=== PATIENT | male | born 1990 | race Caucasian/White ===

== ENCOUNTER 2016-07-26 18:12 | Emergency (ER) | payer SELFPAY ==
[2016-07-26] MEDS ORDERED: Oxymetazoline HCl 0.05% ( 15 ML ) ONE (19:00)
== END 2016-07-26 19:08 | disposition home or self-care (01) ==
LOC: MADERS 18:12
DX: J30.2 Other seasonal allergic rhinitis (principal); K21.9 Gastro-esophageal reflux disease without esophagitis; G56.00 Carpal tunnel syndrome, unspecified upper limb; F90.9 Attention-deficit hyperactivity disorder, unspecified type
CPT/HCPCS: 99283

== ENCOUNTER 2017-08-09 00:27 | Emergency (ER) | payer OTHER, SELFPAY ==
[2017-08-09] MEDS ORDERED: Ibuprofen 800 MG TAB ONE (00:49)
[2017-08-09] MEDS ORDERED: Fluconazole 100 MG TAB ONE (00:49)
[2017-08-09] MEDS ORDERED: predniSONE 20 MG TAB ONE (00:49)
== END 2017-08-09 00:52 | disposition home or self-care (01) ==
LOC: MADERS 00:27
DX: S93.501A Unspecified sprain of right great toe, initial encounter (principal); K21.9 Gastro-esophageal reflux disease without esophagitis; F90.9 Attention-deficit hyperactivity disorder, unspecified type; F17.210 Nicotine dependence, cigarettes, uncomplicated; X58.XXXA Exposure to other specified factors, initial encounter
CPT/HCPCS: 99283; J7506

== ENCOUNTER 2022-11-16 16:32 | Emergency (ER) | payer OTHER, SELFPAY ==
[2022-11-16] MEDS ORDERED: Ketorolac Tromethamine 30 MG/ML VIAL ONE (17:35)
== END 2022-11-16 18:06 | disposition home or self-care (01) ==
LOC: MADERS 16:32
DX: S33.5XXA Sprain of ligaments of lumbar spine, initial encounter (principal); K21.9 Gastro-esophageal reflux disease without esophagitis; F17.290 Nicotine dependence, other tobacco product, uncomplicated; X50.0XXA Overexertion from strenuous movement or load, initial encounter
CPT/HCPCS: 96372; 99283; J1885

== ENCOUNTER 2022-12-27 17:03 | Emergency (ER) | payer OTHER | END 2022-12-27 19:44 | disposition left against medical advice (07) | LOC: MADERS 17:03 | DX: Z53.21 Procedure and treatment not carried out due to patient leaving prior to being seen by health care provider (principal) ==

== ENCOUNTER 2024-03-12 11:09 | Emergency (ER) | payer SELFPAY ==
[2024-03-12] MEDS ORDERED: Ketorolac Tromethamine 10 MG TAB ONE (11:30)
[2024-03-12] MEDS ORDERED: Cyclobenzaprine 10 MG TAB ONE (11:30)
== END 2024-03-12 11:46 | disposition home or self-care (01) ==
LOC: MADERS 11:09
DX: M54.50 Low back pain, unspecified (principal); F17.290 Nicotine dependence, other tobacco product, uncomplicated
CPT/HCPCS: 99283

== ENCOUNTER 2024-05-26 21:48 | Emergency (ER) | payer OTHER, SELFPAY ==
[2024-05-26] MEDS ORDERED: Milk Of Magnesia 30 ML UDCUP ONE (21:54)
[2024-05-26] MEDS ORDERED: Lidocaine Viscous Sol 2% 15 ml UD Cup ONE (21:54)
[2024-05-26] MEDS ORDERED: Aspirin Chewable 81 MG TAB ONE (22:01)
[2024-05-26] MEDS ORDERED: Nitroglycerin 0.4 MG TAB 1 EACH ONE (22:01)
[2024-05-26 22:26] LABS: Hemoglobin 14.6 g/dL (14.0-18.0); Mean Corpuscular Hemoglobin 29.9 pg (27.0-31.0); Mean Platelet Volume 6.9 fL (7.4-10.4); Platelet Count 320 10x3/uL (130-400); RBC Distribution Width 10.8 % (11.5-14.5); Red Blood Cell (RBC) Count 4.89 mill/uL (4.70-6.10)
[2024-05-26 22:27] LABS: #Basophils 0.1 thou/uL (0.0-0.2); #Eosinophils 0.4 thou/uL (0.0-0.7); #Monocytes 0.9 thou/uL (0.11-0.59); #Neutrophils 8.1 thou/uL (1.40-6.50); %Basophils 0.8 % (0.0-1.0); %Eosinophils 3.3 % (0.0-10.0); %Monocytes 7.4 % (0.0-10.0); %Neutrophils 64.5 % (42.0-75.0)
[2024-05-26 22:44] LABS: ALT (SGPT) 25 U/L (Less than 45); AST (SGOT) 26 U/L (11-34); Albumin 4.1 g/dL (3.1-4.5); Alkaline Phosphatase 61 U/L (40-110); Anion Gap 14 mmol/L (10-20); BUN (Urea Nitrogen) 9 mg/dL (8.9-20.6); Bilirubin, Total 0.3 mg/dL (0.3-1.2); Calc. Creatinine Clearance 0 mL/min (70-130); Calcium 9.1 mg/dL (7.8-10.44); Carbon Dioxide 24 mmol/L (22-29); Chloride 106 mmol/L (98-107); Estimated GFR 118; Globulin 2.7 g/dL (2.4-3.5); Glucose 78 mg/dL (70-105); Lipase 17 U/L (8-78); Protein, Total 6.8 g/dL (6.0-8.3); Sodium 140 mmol/L (136-145); Troponin I Less than 0.010 ng/mL (< 0.028)
[2024-05-26] MEDS ORDERED: Famotidine 20 MG TAB ONE (22:56)
[2024-05-26] MEDS ORDERED: Sucralfate 1 GM TAB ONE (22:56)
== END 2024-05-26 23:05 | disposition home or self-care (01) ==
LOC: MADERS 21:48
DX: R07.2 Precordial pain (principal); F17.290 Nicotine dependence, other tobacco product, uncomplicated
CPT/HCPCS: 36415; 71046; 80053; 83690; 84484; 85025; 93005; 94760

== ENCOUNTER 2024-10-23 21:57 | Emergency (ER) | payer OTHER ==
[2024-10-23 22:23] LABS: Bacteria/HPF Rare-Few HPF (None Seen); CAUTI Indications for Culture Pelvic or flank pain; Glucose, Urine (Dipstick) Negative (Negative); Leukocyte Negative (Negative); Protein, Urine (Dipstick) Negative (Neg-Trace); RBC/HPF 0-3 HPF (0-3); Specific Gravity, Urine 1.020 (1.005-1.030)
[2024-10-23 22:24] LABS: Urine Culture Reflex No No
== END 2024-10-23 22:56 | disposition home or self-care (01) ==
LOC: MADERS 21:57
DX: N34.2 Other urethritis (principal); F17.290 Nicotine dependence, other tobacco product, uncomplicated
CPT/HCPCS: 81001